=== PATIENT | male | born 1990 | race Hispanic/Latino ===

== ENCOUNTER 2016-12-10 10:07 | Emergency (ER) | payer SELFPAY ==
[2016-12-10 11:27] LABS: #Eosinphils 0.1 thou/uL (0.0-0.7); #Lymphocytes 1.6 thou/uL (1.20-3.40); #Monocytes 0.4 thou/uL (0.11-0.59); #Neutrophils 4.2 thou/uL (1.40-6.50); %Basophils 0.1 % (0.0-1.0); %Lymphocytes 26.1 % (21.0-51.0); %Monocytes 6.1 % (0.0-10.0); Hematocrit 50.3 % (42.0-52.0); Red Blood Cell (RBC) Count 5.37 mill/uL (4.70-6.10); White Blood Cell (WBC) Count 6.3 thou/uL (4.8-10.8)
[2016-12-10 11:47] LABS: ALT (SGPT) 11 U/L (8-55); AST (SGOT) 14 U/L (5-34); Alkaline Phosphatase 63 U/L (40-150); Anion Gap 12 mmol/L (10-20); BUN (Urea Nitrogen) 9 mg/dL (8.9-20.6); Bilirubin, Total 0.9 mg/dL (0.2-1.2); Calc. Creatinine Clearance 0 mL/min (70-130); Calcium 9.4 mg/dL (7.8-10.44); Carbon Dioxide 29 mmol/L (22-29); Chloride 103 mmol/L (98-107); Estimated GFR-MDRD Greater than 90; Protein, Total 7.2 g/dL (6.0-8.3)
[2016-12-10 12:20] LABS: Bilirubin Negative (Negative); Glucose, Urine (Dipstick) Negative (Negative)
[2016-12-10 12:21] LABS: Blood, Urine Negative (Negative); Ketone, Urine Negative (Negative); Nitrite Negative (Negative); Protein, Urine (Dipstick) Negative (Neg-Trace); Urobilinogen 0.2 mg/dL (0.2-1.0)
[2016-12-10] MEDS ORDERED: Meclizine HCl 25 MG TAB ONE (13:39)
== END 2016-12-10 14:46 | disposition home or self-care (01) ==
LOC: ERS 10:07
DX: H81.399 Other peripheral vertigo, unspecified ear (principal)
CPT/HCPCS: 36415; 80053; 81003; 82550; 85025; 96360

== ENCOUNTER 2020-08-02 08:42 | Emergency (ER) | payer SELFPAY ==
[2020-08-02] MEDS ORDERED: Ketorolac Tromethamine 30 MG/ML VIAL ONE (08:58)
[2020-08-02] MEDS ORDERED: Acetaminophen 500 MG TAB ONE (08:58)
== END 2020-08-02 09:30 | disposition home or self-care (01) ==
LOC: ERS 08:42
DX: U07.1 COVID-19 (principal); J12.89 Other viral pneumonia
CPT/HCPCS: 71045; 93005; 96372; J1885

== ENCOUNTER 2021-07-18 19:37 | Emergency (ER) | payer OTHER, SELFPAY | END 2021-07-18 20:25 | disposition home or self-care (01) | LOC: ERS 19:37 | DX: K60.2 Anal fissure, unspecified (principal) | CPT/HCPCS: 99283 ==